=== PATIENT | female | born 1990 | race Caucasian/White ===

== ENCOUNTER 2021-08-24 10:03 | Emergency (ER) | payer BC, SELFPAY ==
--- NOTE | ~2021-08-24 | XR_ITS ---
EXAMINATION: XR wrist LT min 3V DATE: 08/24/2021 10:44 INDICATION: Left wrist pain post fall TECHNIQUE: Posteroanterior, ulnar deviation, oblique, and lateral views of the left wrist were obtain ed. COMPARISON: none FINDINGS: 2-3 mm ulnar minus variance. Alignment is otherwise normal. No fracture. Joint spaces are normal. Sof t tissues are unremarkable. IMPRESSION: 1. No acute osseous abnormality. Reviewed, dictated and finalized at location A. [facility]
[2021-08-24 10:20] VITALS: BP 125/84; PULSE 94; RESP 18; TEMP 36.6; O2SAT 99
[2021-08-24] MEDS: ACETAMINOPHEN 325 MG TABLET 650 MG PO (10:34)
--- NOTE | 2021-08-24 10:34 | ED.GENADULT ---
HPI - General Adult General Chief complaint: Extremity Injury, Upper Stated complaint: wrist pain Time Seen by Provider: 08/24/21 10:12 Source: patient Mode of arrival: ambulatory Limitations: no limitations History of Present Illness HPI narrative: Patient presents for evaluation of left wrist pain since 08/12/2021. She indicates that she slipped on some ice and landed on her buttocks. She did not hit her head nor have loss of consciousness. She attempted to brace her fall by stretching her arms outright. She has had some pain in left wrist since that time. Initially her pain was not that noticeable but has progressively worsened. She states her pain is anywhere from an 8-10 out of 10 in severity. Pain does radiate up the left upper extremity. She does have some associated numbness. She believes that her symptoms are related to carpal tunnel. She is right hand dominant. Movement causes worsening of her pain. She is currently , 33 weeks gestation. She has already had an U/S during this which she states was normal. No abdominal pain or vaginal bleeding. Related Data Home Medications Medication Instructions Recorded Confirmed Unknown 08/24/21 famotidine [Pepcid] 20 mg PO DAILY 08/24/21 08/24/21 sertraline 50 mg PO DAILY 08/24/21 08/24/21 valacyclovir 500 mg PO BID 08/24/21 08/24/21 Allergies Allergy/AdvReac Type Severity Reaction Status Date / Time No Known Allergies Allergy Verified 08/24/21 10:25 Review of Systems Review of Systems: CONSTITUTIONAL: Denies fever, chills, or sweats. EYES: Denies visual changes, redness, or discharge. ENT: Denies rhinorrhea, congestion, sore throat, or otalgia. CARDIOVASCULAR: Denies chest pain, palpitations, or edema. RESPIRATORY: Denies cough or dyspnea. GASTROINTESTINAL: Denies abdominal pain, nausea, vomiting, or diarrhea. GENITOURINARY: Denies dysuria or hematuria. SKIN: Denies rash or itching. MUSCULOSKELETAL: Reports left wrist pain. Denies back pain or myalgia. NEUROLOGIC: Reports numbness in left hand. Denies headache, dizziness, or weakness. PSYCHIATRIC: Denies anxiety or depression. [facility] Past Medical History Medical History (Updated 08/24/21 @ 11:08 by Luis Fernando Mendez, PHOTOCOPYING MACHINE OPERATOR, ) Anxiety Surgical History Surgical History No pertinent past surgical history Family History Family History Mother John-Danlos syndrome Father Diabetes mellitus Hypertension Social History Social History Smoking status: Never smoker Substance use: never Living arrangements: with family Additional occupation/education comments: RN Gender identity (if verbalized by the patient): Female Sexual Orientation (if Verbalized by the Patient): Straight or Heterosexual Spiritual care concerns: No Exam Narrative: GENERAL: Well-appearing, well-nourished, and in no acute distress. HEAD: Normocephalic, atraumatic. EYES: PERRLA and EOMI. ENT: Nares clear, no rhinorrhea or epistaxis. Mucous membranes moist. Oropharynx without tonsillar hypertrophy exudate or other lesions. Bilateral TMs pearly payan nonbulging NECK: Supple. No adenopathy or masses. No carotid bruits or JVD CHEST: Clear to auscultation. No respiratory distress. No wheezes rales or rhonchi HEART: Regular rate and rhythm. No murmur heard. Normal peripheral pulses. ABDOMEN: Soft, nontender, nondistended, normal active bowel sounds. EXTREMITIES: Tenderness in the left wrist without crepitus or deformity. There is trace swelling. Decreased ROM of left wrist. 4/5 hand scholastic aptitude test grader strength on left. 5/5 hand scholastic aptitude test grader strength on right. Negative Tinel's sign. Positive Phalen's sign SKIN: Warm, dry, no rash. NEURO: No focal deficits. Alert and oriented x3. PSYCH: Normal mood and affect. Course Course Emergen
== END 2021-08-24 11:12 | disposition home or self-care (01) ==
PROVIDERS: Emergency Provider Nurse Practitioner; PCP Family Medicine
DX: O9A.213 Injury, poisoning and certain other consequences of external causes complicating pregnancy, third trimester (principal); Z3A.33 33 weeks gestation of pregnancy; W00.0XXA Fall on same level due to ice and snow, initial encounter; S63.502A Unspecified sprain of left wrist, initial encounter; O99.343 Other mental disorders complicating pregnancy, third trimester; F41.9 Anxiety disorder, unspecified
CPT/HCPCS: 73110; 99213; A4565; A9270; G0463